=== PATIENT | male | born 1960 | race Caucasian/White ===

== ENCOUNTER 2024-10-02 12:19 | Inpatient (IN) ==
--- NOTE | 2024-10-02 13:18 | Emergency Department Note ---
History of Present Illness General Chief complaint: Foot Injury/Pain Stated complaint: INFECTION IN FOOT Time Seen by Provider: 10/02/24 12:54 History of Present Illness Maximum Pain Intensity: 8 Patient is a 64-year-old male with past medical history significant for dyslipidemia, and metastatic colon cancer receiving chemotherapy who presents to the emergency department for evaluation of right foot pain, redness and swelling x 1 week. Patient states that symptoms started last , with isolated right great toe pain, without inciting incident or trauma. He thought it may be triggered by an ingrown toenail. The right great toe subsequently became red and swollen. He was seen at a urgent care facility on Sunday 4 days ago, and started on cephalexin 500 mg 4 times daily. At that time, the redness was to the base of the great toe. When his symptoms did not improve on the cephalexin, he was seen at [facility] primary care on Sunday, 2 days ago. At that point, the redness and swelling were traveling into the dorsum of the foot, and he was having worsening pain. He is provider told him to stop the cephalexin, and put him on Levaquin 750 mg daily and doxycycline 100 mg twice daily. He has been taking these antibiotics for about 2 days, and symptoms are worsening. He is checking his temperatures and is not running fevers, denies nausea, vomiting or malaise. He denies a history of gout, but states they did check his uric acid level 2 days ago and it was only "0.1 above the normal range." When his symptoms are worsening today, he sent pictures securely to his primary care provider's office and they directed him to the emergency department. Patient is currently being treated FOLFOX and Avastin, under the care of Dr. Gates. His last chemotherapy was 09/23. Home Medications Medication Instructions Recorded Confirmed Type dicyclomine 10 mg capsule 10 mg PO TID PRN Pain 10/02/24 10/02/24 History doxycycline hyclate 100 mg capsule 100 mg PO BID 10/02/24 10/02/24 History levofloxacin 750 mg tablet 750 mg PO DAILY 10/02/24 10/02/24 History mupirocin 2 % topical ointment 1 applic topical DIRECTED 10/02/24 10/02/24 History simvastatin 20 mg tablet 20 mg PO DAILY 10/02/24 10/02/24 History Allergies Allergy/AdvReac Type Severity Reaction Status Date / Time Penicillins Allergy Intermediate Hives Verified 10/02/24 13:22 Past Med/Surg History Problem List (Updated 10/02/24 @ 15:40 by Devaughn Lei) Cellulitis of foot, right (Acute) Pancytopenia (Acute) Medical History (Updated 10/02/24 @ 15:40 by Devaughn Lei) Colon cancer metastasized to multiple sites Dyslipidemia Surgical History (Updated 10/02/24 @ 15:33 by Sarah Heller PA-C) S/P colonoscopy with polypectomy Hx of lymph node excision 2004 Port-A-Cath in place Family History (Updated 10/02/24 @ 15:34 by Sarah Heller PA-C) Sister Breast cancer Other Diabetes Heart disease Hypertension Social History Smoking Status: Never smoker Preferred Language: Faroese Feels Safe at Home: Yes Review of Systems A total of 10 systems reviewed and were otherwise negative Physical Exam Vital Signs Vital Signs - 24 hr 10/02/24 12:33 10/02/24 12:49 10/02/24 12:53 Temperature 37.1 C Temperature Source Temporal Artery Scan Pulse Rate 60 58 L Pulse Rate [Apical] 53 L Pulse Rate from SpO2 Sensor Respiratory Rate 18 20 Respiratory Effort / Characteristics Non-Labored Spontaneous Non-Labored Respiratory Depth Normal Normal Blood Pressure 128/79 Blood Pressure [Right Arm] 138/78 Blood Pressure Mean 95 Blood Pressure Mean [Right Arm] 98 Pulse Oximetry 98 100 Oxygen Delivery Method Room Air Room Air Sepsis Recent Fever Within 48 Hours No Sepsis New/Unexplained Change in Mental Status No Sepsis Action Taken by Nursing No Action Required 10/02/24 13:01 10/02/24 13:23 10/02/24 13:29 Temperature Temperature Source Pulse Rate 54 L 53 L Pulse Rate [Apical] Pulse Rate from SpO2 Sensor 54 L 54 L Respiratory Rate 14 17 Respiratory Effort / Characteristics Respiratory Depth Blood Pressure 143/84 H 111/94 Blood Pressure [Right Arm] Blood Pressure Mean 103 99 Blood Pressure Mean [Right Arm] Pulse Oximetry 100 100 Oxygen Delivery Method Room Air Room Air Sepsis Recent Fever Within 48 Hours Sepsis New/Unexplained Change in Mental Status Sepsis Action Taken by Nursing 10/02/24 14:30 10/02/24 15:18 Temperature 36.6 C Temperature Source Oral Pulse Rate 57 L Pulse Rate [Apical] Pulse Rate from SpO2 Sensor 56 L Respiratory Rate 13 Respiratory Effort / Characteristics Respiratory Depth Blood Pressure 137/77 Blood Pressure [Right Arm] Blood Pressure Mean 99 Blood Pressure Mean [Right Arm] Pulse Oximetry 100 Oxygen Delivery Method Room Air Sepsis Recent Fever Within 48 Hours Sepsis New/Unexplained Change in Mental Status Sepsis Action Taken by Nursing CONSTITUTIONAL: Nontoxic-appearing 64-year-old male who is awake and alert and in no acute distress. EYES: Pupils equal, round, reactive to light and accommodation. EOMs intact without nystagmus. Sclera are anicteric. CARDIOVASCULAR: Regular rate and rhythm. Peripheral pulses easy to palpable. RESPIRATORY: Breath sounds equal and clear to auscultation. GI: Bowel sounds are present. Abdomen is soft, nontender, nondistended. No organomegaly. No pulsatile masses. No guarding or rebound. MUSCULOSKELETAL: Full range of motion of extremities x 4 with good strength. Right great toe is circumferentially erythematous, swollen, and warm to the touch, with ascending erythema and swelling into the dorsum of the foot. Swelling extends to the ankle, 1+ pitting edema there. Faint erythema to the ankle and gimenez. Mild petechial rash noted. No palpable cords. No right knee joint effusion noted. No lymphangitic streaking. Muscle bellies of the calf and right thigh are soft. NEUROLOGICAL: Alert, oriented, and cooperative. Cranial nerves, sensation and strength grossly intact. LYMPH: No lymphadenopathy. Course Course The patient was seen and assessed as above. External medical records are reviewed. The family preservation caseworker were able to obtain [facility] records from his recent outpatient visits which were reviewed. He presents to the emergency department for evaluation of right great toe and foot pain, redness and swelling. He was treated with cephalexin x 2 days, then doxycycline and Levaquin times almost 2 days, with worsening symptoms. He was referred to the ED by his primary care provider. He is currently receiving chemotherapy for metastatic colon cancer. Saline lock was placed. Laboratory studies collected including CBC with differential, CMP, lactate and blood cultures x 2. Ultrasound of the right lower extremity and x-ray of the right foot were obtained. Discussed patient with the ED pharmacist Taniya Worrell, and patient was given cefepime and vancomycin IV. Patient reviewed with ED family preservation caseworker for anticipated inpatient care. Diagnostics, as interpreted by me: Laboratory studies: Laboratory studies no pancytopenia, white count 2900, H&H 12.8 and 36.4, platelet count 106,000. Fortunately normal differential and no neutropenia. No electrolyte imbalance or VERONICA, no transaminitis. Lactate is not elevated and not consistent with severe sepsis. Imaging studies: X-ray of the right foot without acute fracture or other osseous findings. Ultrasound of the right lower extremity All laboratory and diagnostic imaging studies reviewed with the patient at length. Exam appears consistent with cellulitis, although differential diagnoses considered included osteomyelitis, DVT, necrotizing fasciitis, abscess, gout versus pseudogout, among others. Given his compromised state, I did feel that further inpatient care was warranted and he was agreeable. Patient reviewed with the [facility] for further care and management. Chronic conditions affecting care: Metastatic colon cancer Administered Medications Discontinued Medications Cefepime HCl (Maxipime 2000mg) 2,000 mg in 20 mls @ 5 mls/min IV NOW STA; Protocol Stop: 10/02/24 13:32 Last Admin: 10/02/24 14:11 Dose: 5 mls/min Documented By: GENARO Vancomycin HCl 1,750 mg/ (Sodium Chloride) 535 mls @ 200 mls/hr IV NOW ONE Stop: 10/02/24 16:09 Last Admin: 10/02/24 14:12 Dose: 200 mls/hr Documented By: Medical Decision Making Differential Diagnosis See ED course. Medical Records Attestation: I reviewed the patient's medical records. Home Medications Current Medication List: was personally reviewed by me Laboratory Data Attestation: I reviewed the patient's lab results. 10/02/24 12:51 10/02/24 12:51 Lab Results 10/02/24 10/02/24 Range/Units 12:51 14:15 WBC 2.96 L (4.8-10.8) K/ul RBC 3.69 L (4.70-6.10) M/uL Hgb 12.8 L (14.0-18.0) g/dl Hct 36.4 L (42.0-52.0) % MCV 98.6 (80.0-100.0) fL MCH 34.7 H (25.0-34.0) pg MCHC 35.2 (32.0-36.0) g/dL RDW Std Deviation 47.2 H (36.4-46.3) fL RDW Coeff of Miryam 13.3 (11.5-14.5) % Plt Count 106 L (130-400) K/uL MPV 10.2 (9.4-12.4) fL Immature Gran % (Auto) 1.4 % Neut % (Auto) 48.8 % Lymph % (Auto) 27.4 % [place] % (Auto) 17.6 % Eos % (Auto) 4.1 % Baso % (Auto) 0.7 % Neut # (Auto) 1.45 (1.40-6.50) K/uL Lymph # (Auto) 0.81 L (1.20-3.40) K/uL [place] # (Auto) 0.52 (0.11-0.59) K/uL Eos # (Auto) 0.12 (0.00-0.50) K/uL Baso # (Auto) 0.02 (0.00-0.20) K/uL Immature Gran # (Auto) 0.04 (0.01-0.20) K/uL Sodium 139 (136-145) mmol/L Potassium 4.1 (3.5-5.1) mmol/L Chloride 106 (98-107) mmol/L Carbon Dioxide 26 (21-32) mmol/L Anion Gap 7 (3-11) BUN 20 (6-23) mg/dl Creatinine 0.85 (0.6-1.4) mg/dl Est Cr Clr Drug Dosing 106.3 ml/min eGFR 97.64 BUN/Creatinine Ratio 23.5 H (10-20) Glucose 84 (70-99(Fasting)) mg/dl Lactate 1.0 (0.4-2.0) mmol/L Calcium 9.4 (8.6-10.3) mg/dl Total Bilirubin 1.0 (0.2-1.0) mg/dl AST 26 (13-39) U/L ALT 14 (7-52) U/L Alkaline Phosphatase 53 (34-104) U/L Total Protein 7.7 (6.0-8.3) gm/dl Albumin 4.6 (3.4-5.0) gm/dl Globulin 3.1 (2.5-4.0) gm/dl Albumin/Globulin Ratio 1.5 (0.9-2) Imaging Data Attestation: I personally reviewed and interpreted this imaging study as follows: Radiologist's Impression: Foot X-Ray 10/02/24 13:10 XR foot RT min 3V routine CLINICAL HISTORY: RIGHT GREAT TOE PAIN AND SWELLING X 1 WEEK COMPARISON: None FINDINGS: No fracture or dislocation. No erosion or significant degenerative change. No evidence of osteomyelitis. No radiopaque foreign body. There are small chronic calcifications adjacent to the cuboid and the dorsal midfoot on the lateral view consistent with sequela of old injury. There are is a chronic calcification at the Achilles insertion on the calcaneus consistent with calcific tendinitis or sequela of old Achilles injury. IMPRESSION: No acute osseous finding seen. ACT 112: Negative or not required by law. Electronically signed by: José Fisher M.D. 10/02/2024 1:44 PM Venous Doppler Study 10/02/24 13:10 US venous doppler LE RT HISTORY: right foot pain/redness/swelling COMPARISON: None TECHNIQUE: Multiple real-time sonographic images of the right lower extremity deep venous structures were obtained assessing grayscale appearance, color and spectral flow. FINDINGS: No evidence of DVT seen at the right lower extremity. IMPRESSION: No DVT seen. ACT 112: Negative or not required by law. The above report was generated using voice recognition software. It may contain grammatical, syntax or spelling errors. Electronically signed by: José Fisher M.D. 10/02/2024 2:35 PM MDM Narrative See ED course. Impression & Plan Cellulitis of foot, right, Pancytopenia Discharge Plan Visit Data Chief Complaint: Foot Injury/Pain Stated Complaint: INFECTION IN FOOT ED Provider: Deric Aguirre ED Midlevel Provider: Devaughn Lei Discharge Problem: Cellulitis of foot, right, Pancytopenia Patient Disposition: Being Evaluated by Hospitalist Condition: Fair Forms Stand Alone Forms: My Daz 3d Prescriptions Prescriptions: No Action doxycycline hyclate 100 mg capsule 100 mg PO BID Patient Comments: filled 09/30 7 day supply #14 simvastatin 20 mg tablet 20 mg PO DAILY mupirocin 2 % ointment 1 applic TOPICAL DIRECTED levofloxacin 750 mg tablet 750 mg PO DAILY Patient Comments: filled 09/30 7 day supply #7 dicyclomine 10 mg capsule 10 mg PO TID PRN (Reason: Pain) Referrals Referrals: Edwar Little MD [Outside Practitioners] -
[2024-10-02] MEDS ORDERED: VANCOMYCIN CONSULT ACTIVE PRN (13:29)
[2024-10-02 13:42] LABS: Hematocrit (blood only) 36.4 % (42.0-52.0); Hemoglobin 12.8 g/dl (14.0-18.0); Immature Granulocytes # (auto) 0.04 K/uL (0.01-0.20); Immature Granulocytes % (auto) 1.4 %; Mean Corpuscular Hemoglobin 34.7 pg (25.0-34.0); Mean Corpuscular Volume 98.6 fL (80.0-100.0); Platelet Count 106 K/uL (130-400); RDW Standard Deviation 47.2 fL (36.4-46.3); Red Blood Count 3.69 M/uL (4.70-6.10); White Blood Count 2.96 K/ul (4.8-10.8)
--- NOTE | 2024-10-02 13:46 | XRay Report ---
XR foot RT min 3V routine CLINICAL HISTORY: RIGHT GREAT TOE PAIN AND SWELLING X 1 WEEK COMPARISON: None FINDINGS: No fracture or dislocation. No erosion or significant degenerative change. No evidence of osteomyelitis. No radiopaque foreign body. There are small chronic calcifications adjacent to the cub oid and the dorsal midfoot on the lateral view consistent with sequela of old injury. There are is a chronic calcification at the Achilles insertion on the calcaneus consistent with calcific tendinitis or sequela of old Achilles injury. IMPRESSION: No acute osseous finding seen. ACT 112: Negative or not required by law. Electronically signed by: José Fisher M.D. 10/02/2024 1:44 PM
[2024-10-02 13:57] LABS: Alanine Aminotransferase 14.0 U/L (7-52); Albumin Globulin Ratio 1.5 (0.9-2); Alkaline Phosphatase 53.0 U/L (34-104); Anion Gap 7.0 (3-11); Bilirubin,Total 1.0 mg/dl (0.2-1.0); Blood Urea Nitrogen 20.0 mg/dl (6-23); Calcium 9.4 mg/dl (8.6-10.3); Carbon Dioxide 26.0 mmol/L (21-32); Chloride 106.0 mmol/L (98-107); Creatinine Clr Calc Pharmacy 106.3 ml/min; Globulin 3.1 gm/dl (2.5-4.0); Glucose 84.0 mg/dl (70-99(Fasting)); Potassium 4.1 mmol/L (3.5-5.1); Sodium 139.0 mmol/L (136-145); Total Protein 7.7 gm/dl (6.0-8.3)
[2024-10-02] MEDS: CEFEPIME 2000MG 2,000 MG/20 ML SYR IV STA (14:11)
[2024-10-02] MEDS: VANCOMYCIN HCL 1,750 MG in SODIUM CHLORIDE 0.9% 500 ML IV ONE (14:12)
--- NOTE | 2024-10-02 14:36 | Ultrasound Report ---
US venous doppler LE RT HISTORY: right foot pain/redness/swelling COMPARISON: None TECHNIQUE: Multiple real-time sonographic images of the right lower extremity deep venous structures were obtained assessing grayscale appearance, color and spectral flow. FINDINGS: No evidence of DVT seen at the right lower extremity. IMPRESSION: No DVT seen. ACT 112: Negative or not required by law. The above report was generated using voice recognition software. It may contain grammatical, syntax o r spelling errors. Electronically signed by: José Fisher M.D. 10/02/2024 2:35 PM
--- NOTE | 2024-10-02 15:26 | History & Physical Report ---
Date of Service October 02, 2024 Assessment & Plan (1) Cellulitis of foot, right: (2) Pancytopenia: (3) Colon cancer metastasized to multiple sites: (4) Dyslipidemia: Plan This is a 64 y/o male with metastatic colon cancer, currently receiving chemo with mFOLFOX6, dyslipidemia, and Raynaud phenomenon presents to the ED today with infection of right great toe having failed outpatient oral antibiotics. Pt is currently on chemotherapy with last cycle on 09/23/24 with resultant pa ncytopenia. In the ED, WBCs low at 2.96 but neutrophils low normal at 1.45. Pt referred for admission for IV antibiotics in view of failure of outpatient treatment in a patient currently immunocompromised due to chemotherapy. Does not currently meet criteria for sepsis as pt is afebrile, no tachycardia/hypotension/tachypnea. His outpatient oncology notes and labs were personally reviewed. #Right toe cellulitis #Immunocompromised due to chemotherapy #Pancytopenia - Admit to med surg - Continue broad-spectrum antibiotics with IV cefepime and vancomycin for now - Blood cultures, MRSA swab pending - Daily CBC - ANC trending up since last week - Chemo canceled for next week - timing of next cycle to be determined pending hospital course #Dyslipidemia Chronic, stable - continue statin Pt seen and reviewed with collaborating physician, Dr. Salcedo. Plan of care discussed and as outlined above. Code status: full code I spent a total of 72 minutes coordinating, documenting, and providing care for this patient excluding time spent in the performance of separately billed services or time spent by another provider/QHP. Morris Heller PA-C History of Present Illness Chief Complaint: toe infection Primary Care Provider: Rodney Nunes This is a 64 y/o male with metastatic colon cancer, currently receiving chemo with mFOLFOX6, dyslipidemia, and Raynaud phenomenon presents to the ED today with infection of right great toe having failed outpatient oral antibiotics. Started with mild pain and swelling in his right great toe about a week ago. No known injury or inciting event. He was seen at urgent care 09/28/24 with three days of swelling and redness of right great toe - diagnosed with cellulitis and placed on cephalexin. He didn't notice any significant improvement on two days of cephalexin so he was seen at PCP office on 09/30/24 for re-evaluation. The cephalexin was stopped and he was started on levofloxacin and doxycycline. Since changing antibiotics, the toe has continued to worsen, especially over the last 24 hours. The swelling has spread from the toe to the foot and now to his ankle. The pain has worsened, especially with any pressure to the area or weightbear ing. Pain is described as throbbing, may keep him up at night. No open wounds on or drainage from the toe. He denies having anything similar in the past. He denies fevers or sweats, but chronically has chills from the chemo. Last dose of chemo was on 09/23/24, due for next dose next week but already spoke with oncology to cancel this. He denies chest pain, palpitations, nausea, vomiting, diarrhea, cold symptoms. Appetite is fair at baseline. Allergies Allergy/AdvReac Type Severity Reaction Status Date / Time Penicillins Allergy Intermediate Hives Verified 10/02/24 13:22 Home Medications Medication Instructions Recorded Confirmed Type dicyclomine 10 mg capsule 10 mg PO TID PRN Pain 10/02/24 10/02/24 History doxycycline hyclate 100 mg capsule 100 mg PO BID 10/02/24 10/02/24 History levofloxacin 750 mg tablet 750 mg PO DAILY 10/02/24 10/02/24 History mupirocin 2 % topical ointment 1 applic topical DIRECTED 10/02/24 10/02/24 History simvastatin 20 mg tablet 20 mg PO DAILY 10/02/24 10/02/24 History Past Med/Surg History Problem List (Updated 10/02/24 @ 15:40 by Devaughn Lei) Cellulitis of foot, right (Acute) Pancytopenia (Acute) Medical History (Updated 10/02/24 @ 15:40 by Devaughn Lei) Colon cancer metastasized to multiple sites Dyslipidemia Surgical History (Updated 10/02/24 @ 15:33 by Sarah Heller PA-C) S/P colonoscopy with polypectomy Hx of lymph node excision 2004 Port-A-Cath in place Family History (Updated 10/02/24 @ 15:34 by Sarah Heller PA-C) Sister Breast cancer Other Diabetes Heart disease Hypertension Social History Smoking Status: Never smoker Hx Alcohol Use: No Hx Substance Use: No Preferred Language: Korean [employer] Required: Yes Beliefs That Will Affect Care: None Current Living Situation: Alone and Family Feels Safe at Home: Yes Review of Systems Review of Systems: All systems reviewed & are unremarkable except as noted in Subjective Physical Exam Physical Exam: General: awake, alert, NAD HEENT: no scleral icterus, moist oral mucosa Neck: supple, trachea midline Heart: RRR, no M/G/R Lungs: CTA bilaterally, no W/R/R Abdomen: soft, NT, +BS Extremities: right great toe with erythema and warmth, swelling extending to right ankle, exquisitely tender to touch from toe to midfoot, distal pulses intact and equal UE and LE bilaterally Results & Data Results & Data Vital Signs (Past 12 Hours) Vital Signs Temp Pulse Pulse Resp BP BP Pulse Ox 10/02/24 15:18 36.6 C 10/02/24 14:30 57 L 13 137/77 100 10/02/24 13:29 53 L 17 111/94 100 10/02/24 13:23 54 L 14 100 10/02/24 13:01 143/84 H 10/02/24 12:53 58 L 10/02/24 12:49 53 L 20 138/78 100 10/02/24 12:33 37.1 C 60 18 128/79 98 O2 Del Method 10/02/24 15:18 10/02/24 14:30 Room Air 10/02/24 13:29 Room Air 10/02/24 13:23 Room Air 10/02/24 13:01 10/02/24 12:53 10/02/24 12:49 Room Air 10/02/24 12:33 Room Air Laboratory Results Lab Results 10/02/24 10/02/24 Range/Units 12:51 14:15 WBC 2.96 L (4.8-10.8) K/ul RBC 3.69 L (4.70-6.10) M/uL Hgb 12.8 L (14.0-18.0) g/dl Hct 36.4 L (42.0-52.0) % MCV 98.6 (80.0-100.0) fL MCH 34.7 H (25.0-34.0) pg MCHC 35.2 (32.0-36.0) g/dL RDW Std Deviation 47.2 H (36.4-46.3) fL RDW Coeff of Miryam 13.3 (11.5-14.5) % Plt Count 106 L (130-400) K/uL MPV 10.2 (9.4-12.4) fL Immature Gran % (Auto) 1.4 % Neut % (Auto) 48.8 % Lymph % (Auto) 27.4 % [place] % (Auto) 17.6 % Eos % (Auto) 4.1 % Baso % (Auto) 0.7 % Neut # (Auto) 1.45 (1.40-6.50) K/uL Lymph # (Auto) 0.81 L (1.20-3.40) K/uL [place] # (Auto) 0.52 (0.11-0.59) K/uL Eos # (Auto) 0.12 (0.00-0.50) K/uL Baso # (Auto) 0.02 (0.00-0.20) K/uL Immature Gran # (Auto) 0.04 (0.01-0.20) K/uL Sodium 139 (136-145) mmol/L Potassium 4.1 (3.5-5.1) mmol/L Chloride 106 (98-107) mmol/L Carbon Dioxide 26 (21-32) mmol/L Anion Gap 7 (3-11) BUN 20 (6-23) mg/dl Creatinine 0.85 (0.6-1.4) mg/dl Est Cr Clr Drug Dosing 106.3 ml/min eGFR 97.64 BUN/Creatinine Ratio 23.5 H (10-20) Glucose 84 (70-99(Fasting)) mg/dl Lactate 1.0 (0.4-2.0) mmol/L Calcium 9.4 (8.6-10.3) mg/dl Total Bilirubin 1.0 (0.2-1.0) mg/dl AST 26 (13-39) U/L ALT 14 (7-52) U/L Alkaline Phosphatase 53 (34-104) U/L Total Protein 7.7 (6.0-8.3) gm/dl Albumin 4.6 (3.4-5.0) gm/dl Globulin 3.1 (2.5-4.0) gm/dl Albumin/Globulin Ratio 1.5 (0.9-2) Diagnostic Findings Foot X-Ray 10/02/24 13:10 XR foot RT min 3V routine CLINICAL HISTORY: RIGHT GREAT TOE PAIN AND SWELLING X 1 WEEK COMPARISON: None FINDINGS: No fracture or dislocation. No erosion or significant degenerative change. No evidence of osteomyelitis. No radiopaque foreign body. There are small chronic calcifications adjacent to the cuboid and the dorsal midfoot on the lateral view consistent with sequela of old injury. There are is a chronic calcification at the Achilles insertion on the calcaneus consistent with calcific tendinitis or sequela of old Achilles injury. IMPRESSION: No acute osseous finding seen. ACT 112: Negative or not required by law. Electronically signed by: José Fisher M.D. 10/02/2024 1:44 PM Venous Doppler Study 10/02/24 13:10 US venous doppler LE RT HISTORY: right foot pain/redness/swelling COMPARISON: None TECHNIQUE: Multiple real-time sonographic images of the right lower extremity deep venous structures were obtained assessing grayscale appearance, color and spectral flow. FINDINGS: No evidence of DVT seen at the right lower extremity. IMPRESSION: No DVT seen. ACT 112: Negative or not required by law. The above report was generated using voice recognition software. It may contain grammatical, syntax or spelling errors. Electronically signed by: José Fisher M.D. 10/02/2024 2:35 PM Medications Administered Vancomycin HCl 1,750 mg/ (Sodium Chloride) 535 mls @ 200 mls/hr IV NOW ONE Stop: 10/02/24 16:09 Last Admin: 10/02/24 14:12 Dose: 200 mls/hr Documented By: GENARO Discontinued Medications Cefepime HCl (Maxipime 2000mg) 2,000 mg in 20 mls @ 5 mls/min IV NOW STA; Protocol Stop: 10/02/24 13:32 Last Admin: 10/02/24 14:11 Dose: 5 mls/min Documented By: GENARO Supervising Physician Co-Signing Physician Notes Attending addendum: He has been complaining of worsening redness and swelling involving the right great toe and associated area of right foot Has significant pain in the right foot and right great toe but denies any other significant symptoms He received his chemotherapy for colon cancer on 09/28/2024 On examination Lying in bed with some distress due to right foot pain Hemodynamically stable and is afebrile Chestclear to auscultate bilaterally HeartS1-S2, regular Abdomenbenign Extremitiesright foot is swollen with redness involving the right big toe and adjoining area of the foot, tenderness and no evidence of regional lymphadenopathy No breach of the skin noted and no ingrowing toenail His labs and imaging studies reviewed Assessment and plan Spreading cellulitis involving the right great toe and adjoining area of right foot with failed outpatient antibiotics Received Keflex initially followed by [facility] for the last 1 or 2 days Blood cultures have been sent and he will be starting with IV cefepime and vancomycin He is immunosuppressed secondary to ongoing chemo with history of colon cancer Agree with assessment plan as outlined above by Zo Heller PA-C and take the full responsibility of care in the hospital Dr Zakia Salcedo
--- NOTE | 2024-10-02 19:57 | Pharmacy Report ---
Pharmacy PK ABX Note - Date of Service October 02, 2024 - Assessment and Plan Assessment 64 year old M admitted for R toe cellulitis and pancytopenia due to recent chemotherapy for colon cancer. Patient is immunocompromised. Vancomycin and Cefepime started for treatment of cellulitis after failed outpatient oral antibiotics- first Keflex after 2 days therapy then almost 2 days of Doxycycline and Levaquin. Pertinent microbiologic data includes: Blood cultures pending. Day #1 of antimicrobial therapy. Plan Vancomycin * Loading dose: 1750 mg IV x 1 * Maintenance dose: 1500 mg IV every 12 hours * Regimen is predicted to achieve target AUC/AD of 400-600 mg/L.hr * Random level ordered for: 7/5 with AM labs. Pharmacy will continue to follow and will adjust dose/frequency as necessary. Thank you. Pharmacy has transitioned to AUC monitoring for vancomycin. AUC/AD is the preferred PK/PD target and is associated with decreased risk of nephrotoxicity compared to traditional trough targets.
[2024-10-02] MEDS: CEFEPIME 2000MG 2,000 MG/20 ML SYR IV SCH (20:50)
[2024-10-02] MEDS: VANCOMYCIN HCL 1,500 MG in SODIUM CHLORIDE 0.9% 500 ML IV SCH (20:55)
[2024-10-03 07:14] LABS: Hematocrit (blood only) 31.0 % (42.0-52.0); Hemoglobin 10.9 g/dl (14.0-18.0); Mean Corpuscular Hemoglobin 34.6 pg (25.0-34.0); Mean Corpuscular Volume 98.4 fL (80.0-100.0); Platelet Count 99 K/uL (130-400); RDW Standard Deviation 46.4 fL (36.4-46.3); Red Blood Count 3.15 M/uL (4.70-6.10); White Blood Count 2.79 K/ul (4.8-10.8)
[2024-10-03 07:24] LABS: Anion Gap 5.0 (3-11); Blood Urea Nitrogen 15.0 mg/dl (6-23); Calcium 8.7 mg/dl (8.6-10.3); Carbon Dioxide 25.0 mmol/L (21-32); Chloride 111.0 mmol/L (98-107); Creatinine Clr Calc Pharmacy 110.2 ml/min; Glucose 90.0 mg/dl (70-99(Fasting)); Potassium 3.8 mmol/L (3.5-5.1); Sodium 141.0 mmol/L (136-145)
[2024-10-03 07:33] LABS: Immature Granulocytes # (auto) 0.01 K/uL (0.01-0.20); Immature Granulocytes % (auto) 0.4 %; Polychromasia 1+
[2024-10-03] MEDS: SIMVASTATIN 20 MG TAB PO SCH ×2 (08:16→23:08)
[2024-10-03] MEDS: ENOXAPARIN INJ 40 MG/0.4 ML SYR SQ SCH (08:16)
--- NOTE | 2024-10-03 10:35 | Hospitalist Progress Note ---
Date of Service October 03, 2024 Assessment & Plan (1) Cellulitis of foot, right: (2) Pancytopenia: (3) Colon cancer metastasized to multiple sites: (4) Dyslipidemia: Plan 64 year old man with metastatic colon cancer, currently receiving chemo with mFOLFOX6, dyslipidemia, and Raynaud phenomenon presents to the ED with infection of right great toe having failed outpatient oral antibiotics. Pt is currently on chemotherapy with last cycle on 09/23/24 with resultant pancytopenia. #Right toe and foot cellulitis #Immunocompromised due to chemotherapy #Pancytopenia LE XR and Doppler did not show any acute findings Blood cultures pending Continue IV cefepime and vancomycin for now RN to anil cellulitis area to monitor progress Pancytopenia likely related to chemo Pain control #Dyslipidemia Chronic, stable Continue statin I spent a total of 50 minutes coordinating, documenting and providing care for this patient excluding time spent in performance of separately billed services Admission and Anticipated Discharge Date Admission Date: October 02, 2024 Subjective Patient seen and examined Still reports significant pain in right foot Reports redness is improving No other complaints on ROS Physical Exam Constitutional: + well hydrated; no acute distress Eyes: PERRL, conjunctivae normal, anicteric sclerae ENMT: external ear and nose normal, oropharynx normal Respiratory: normal respiratory effort, lungs clear to auscultation Cardiovascular: Rate/Rhythm: regular rate and regular rhythm Gastrointestinal (Abdomen): normal bowel sounds, soft, nontender, no hepatosplenomegaly Musculoskeletal: Right foot - Erythema and tenderness on anterior dorsum of foot and great toe. Associated with swelling. No open wounds Neurologic: PERRL, EOMI, accommodation nl, no face palsy, no dysarthria Psychiatric: A+Ox3, euthymic affect Results & Data Results & Data Vital Signs (Past 12 Hours) Vital Signs Temp Pulse Resp BP Pulse Ox O2 Del Method 10/03/24 07:26 36.3 C L 59 L 18 134/70 97 Room Air Laboratory Results Abnormal lab results 10/02/24 10/03/24 Range/Units 12:51 06:33 WBC 2.96 L 2.79 L (4.8-10.8) K/ul RBC 3.69 L 3.15 L (4.70-6.10) M/uL Hgb 12.8 L 10.9 L (14.0-18.0) g/dl Hct 36.4 L 31.0 L (42.0-52.0) % MCH 34.7 H 34.6 H (25.0-34.0) pg RDW Std Deviation 47.2 H 46.4 H (36.4-46.3) fL Plt Count 106 L 99 L (130-400) K/uL Neut # (Auto) 1.27 L (1.40-6.50) K/uL Lymph # (Auto) 0.81 L 0.82 L (1.20-3.40) K/uL Chloride 111 H (98-107) mmol/L BUN/Creatinine Ratio 23.5 H (10-20)
[2024-10-03] MEDS: ACETAMINOPHEN 325 MG TAB PO PRN (10:36)
[2024-10-03 21:15] LABS: A calco-baum cmplx NotReported Not Detected (NotDetected); Bact fragilis Not Reported Not Detected (NotDetected); Blood Culture Id Panel PCR Panel Negative (NotDetected); C auris Not Reported Not Detected (NotDetected); Calbicans Not Reported Not Detected (NotDetected); Candida glabrata Not Reported Not Detected (NotDetected); Candida krusei Not Reported Not Detected (NotDetected); Cneoformans/gatti Not Reported Not Detected (NotDetected); Cparapsilosis Not Reported Not Detected (NotDetected); Ctropicalis Not Reported Not Detected (NotDetected); E cloacae compx Not Reported Not Detected (NotDetected); Efaecalis Not Reported Not Detected (NotDetected); Efaecium Not Reported Not Detected (NotDetected); Enterobacterales Not Reported Not Detected (NotDetected); Escherichia coli Not Reported Not Detected (NotDetected); H influenzae Not Reported Not Detected (NotDetected); K aerogenes Not Reported Not Detected (NotDetected); Koxytoca Not Reported Not Detected (NotDetected); Kpneumoniae grp Not Reported Not Detected (NotDetected); Lmonocyt Not Reported Not Detected (NotDetected); N meningitidis Not Reported Not Detected (NotDetected); P aeruginosa Not Reported Not Detected (NotDetected); Proteus spp Not Reported Not Detected (NotDetected); Salmonella spp Not Reported Not Detected (NotDetected); Staph lugdunensis Not Reported Not Detected (NotDetected); Staph spp. Not Reported Not Detected (NotDetected); Staphaureus Not Reported Not Detected (NotDetected); Staphepi Not Reported Not Detected (NotDetected); Stenmaltophilia Not Reported Not Detected (NotDetected); Strep agal(GrpB) Not Reported Not Detected (NotDetected); Strep pneum Not Reported Not Detected (NotDetected); Strep pyog (GrpA) Not Reported Not Detected (NotDetected); Strep spp Not Reported Not Detected (NotDetected)
[2024-10-04 06:11] LABS: Hematocrit (blood only) 30.3 % (42.0-52.0); Hemoglobin 11.0 g/dl (14.0-18.0); Mean Corpuscular Hemoglobin 35.4 pg (25.0-34.0); Mean Corpuscular Volume 97.4 fL (80.0-100.0); Platelet Count 86 K/uL (130-400); RDW Standard Deviation 45.7 fL (36.4-46.3); Red Blood Count 3.11 M/uL (4.70-6.10); White Blood Count 2.80 K/ul (4.8-10.8)
[2024-10-04 06:26] LABS: Anion Gap 6.0 (3-11); Blood Urea Nitrogen 11.0 mg/dl (6-23); Calcium 8.6 mg/dl (8.6-10.3); Carbon Dioxide 25.0 mmol/L (21-32); Chloride 111.0 mmol/L (98-107); Creatinine Clr Calc Pharmacy 113.0 ml/min; Glucose 92.0 mg/dl (70-99(Fasting)); Potassium 3.7 mmol/L (3.5-5.1); Sodium 142.0 mmol/L (136-145)
--- NOTE | 2024-10-04 10:01 | Pharmacy Report ---
Pharmacy PK ABX Note - Date of Service October 04, 2024 - Assessment and Plan Assessment * 64 year old M admitted for R toe cellulitis and pancytopenia due to recent chemotherapy for colon cancer. Patient is immunocompromised. * Vancomycin and Cefepime started for treatment of cellulitis after failed outpatient oral antibiotics- first Keflex after 2 days therapy then almost 2 days of Doxycycline and Levaquin. 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 Bacillus species (other than anthracis) are often contaminants. * SCr stable Plan Vancomycin * Target AUC/AD of 400-600 mg/L.hr * Level of 18.2 mcg/mL today associated with a therapeutic AUC of 555 mg/L.hr * Continue 1500 mg IV every 12 hours * Repeat random level in ~48-72 hours, or sooner if clinical status changes Pharmacy will continue to follow and will adjust dose/frequency as necessary. Thank you. Pharmacy has transitioned to AUC monitoring for vancomycin. AUC/AD is the preferred PK/PD target and is associated with decreased risk of nephrotoxicity compared to traditional trough targets.
--- NOTE | 2024-10-04 10:31 | Hospitalist Progress Note ---
Date of Service October 04, 2024 Assessment & Plan (1) Cellulitis of foot, right: (2) Pancytopenia: (3) Colon cancer metastasized to multiple sites: (4) Dyslipidemia: Plan 64 year old man with metastatic colon cancer, currently receiving chemo with mFOLFOX6, dyslipidemia, and Raynaud phenomenon presents to the ED with infection of right great toe having failed outpatient oral antibiotics. Pt is currently on chemotherapy with last cycle on 09/23/24 with resultant pancytopenia. #Right toe and foot cellulitis #Immunocompromised due to chemotherapy #Pancytopenia LE XR and Doppler did not show any acute findings Blood cultures pending Continue IV cefepime and vancomycin for now Pancytopenia likely related to chemo Pain control #Dyslipidemia Chronic, stable Continue statin I spent a total of 40 minutes coordinating, documenting and providing care for this patient excluding time spent in performance of separately billed services Admission and Anticipated Discharge Date Admission Date: October 02, 2024 Subjective Patient seen and examined Reports pain is improving No other complaints Physical Exam Constitutional: + well hydrated; no acute distress Eyes: PERRL, conjunctivae normal, anicteric sclerae ENMT: external ear and nose normal, oropharynx normal Respiratory: normal respiratory effort, lungs clear to auscultation Cardiovascular: Rate/Rhythm: regular rate and regular rhythm Gastrointestinal (Abdomen): normal bowel sounds, soft, nontender, no hepatosplenomegaly Musculoskeletal: Right foot - Erythema, swelling and tenderness on anterior dorsum of foot and great toe are improving. Neurologic: PERRL, EOMI, accommodation nl, no face palsy, no dysarthria Psychiatric: A+Ox3, euthymic affect Results & Data Results & Data Vital Signs (Past 12 Hours) Vital Signs Temp Pulse Resp BP Pulse Ox O2 Del Method 10/04/24 08:33 36.3 C L 58 L 16 134/78 98 Room Air Laboratory Results Abnormal lab results 10/04/24 Range/Units 05:49 WBC 2.80 L (4.8-10.8) K/ul RBC 3.11 L (4.70-6.10) M/uL Hgb 11.0 L (14.0-18.0) g/dl Hct 30.3 L (42.0-52.0) % MCH 35.4 H (25.0-34.0) pg MCHC 36.3 H (32.0-36.0) g/dL Plt Count 86 L (130-400) K/uL MPV 8.9 L (9.4-12.4) fL Chloride 111 H (98-107) mmol/L
[2024-10-05 07:40] LABS: Hematocrit (blood only) 32.3 % (42.0-52.0); Hemoglobin 11.4 g/dl (14.0-18.0); Mean Corpuscular Hemoglobin 34.9 pg (25.0-34.0); Mean Corpuscular Volume 98.8 fL (80.0-100.0); Platelet Count 97 K/uL (130-400); RDW Standard Deviation 46.5 fL (36.4-46.3); Red Blood Count 3.27 M/uL (4.70-6.10); White Blood Count 3.02 K/ul (4.8-10.8)
[2024-10-05 07:57] LABS: Anion Gap 5.0 (3-11); Blood Urea Nitrogen 9.0 mg/dl (6-23); Calcium 8.6 mg/dl (8.6-10.3); Carbon Dioxide 27.0 mmol/L (21-32); Chloride 110.0 mmol/L (98-107); Creatinine Clr Calc Pharmacy 108.9 ml/min; Glucose 89.0 mg/dl (70-99(Fasting)); Potassium 3.7 mmol/L (3.5-5.1); Sodium 142.0 mmol/L (136-145)
--- NOTE | 2024-10-05 09:43 | Hospitalist Progress Note ---
Date of Service October 05, 2024 Assessment & Plan (1) Cellulitis of foot, right: (2) Pancytopenia: (3) Colon cancer metastasized to multiple sites: (4) Dyslipidemia: Plan 64 year old man with metastatic colon cancer, currently receiving chemo with mFOLFOX6, dyslipidemia, and Raynaud phenomenon presents to the ED with infection of right great toe having failed outpatient oral antibiotics. Pt is currently on chemotherapy with last cycle on 09/23/24 with resultant pancytopenia. #Right toe and foot cellulitis #Immunocompromised due to chemotherapy #Pancytopenia LE XR and Doppler did not show any acute findings Blood cultures - 04/05 bottle growing Bacillus simplex. Likely contaminant and patient had no systemic symptoms Continue IV cefepime and vancomycin for now Pancytopenia likely related to chemo Pain control #Dyslipidemia Chronic, stable Continue statin I spent a total of 40 minutes coordinating, documenting and providing care for this patient excluding time spent in performance of separately billed services Admission and Anticipated Discharge Date Admission Date: October 02, 2024 Subjective Patient seen and examined Continues to report improving pain and swelling No other complaints Physical Exam Constitutional: + well hydrated; no acute distress Eyes: PERRL, conjunctivae normal, anicteric sclerae ENMT: external ear and nose normal, oropharynx normal Respiratory: normal respiratory effort, lungs clear to auscultation Cardiovascular: Rate/Rhythm: regular rate and regular rhythm Gastrointestinal (Abdomen): normal bowel sounds, soft, nontender, no hepatosplenomegaly Musculoskeletal: Right foot - Erythema, swelling and tenderness on anterior dorsum of foot and great toe are improving Neurologic: PERRL, EOMI, accommodation nl, no face palsy, no dysarthria Psychiatric: A+Ox3, euthymic affect Results & Data Results & Data Vital Signs (Past 12 Hours) Vital Signs Temp Pulse Resp BP Pulse Ox O2 Del Method 10/05/24 06:57 36.4 C L 51 L 16 133/73 98 Room Air Laboratory Results Abnormal lab results 10/05/24 Range/Units 07:20 WBC 3.02 L (4.8-10.8) K/ul RBC 3.27 L (4.70-6.10) M/uL Hgb 11.4 L (14.0-18.0) g/dl Hct 32.3 L (42.0-52.0) % MCH 34.9 H (25.0-34.0) pg RDW Std Deviation 46.5 H (36.4-46.3) fL Plt Count 97 L (130-400) K/uL Chloride 110 H (98-107) mmol/L
[2024-10-05 15:44] VITALS: TEMP 97.7
[2024-10-05 20:19] VITALS: RESP 18
[2024-10-05] MEDS: diphenhydrAMINE 2%/ZINC 0.1% CREAM 28.4GM TUBE EXT PRN (22:23)
[2024-10-06 08:44] VITALS: BP 134/81; PULSE 57; O2SAT 97
--- NOTE | 2024-10-06 11:41 | Discharge Summary ---
Date of Service October 06, 2024 Admission HPI Per Admitting Provider This is a 64 y/o male with metastatic colon cancer, currently receiving chemo with mFOLFOX6, dyslipidemia, and Raynaud phenomenon presents to the ED today with infection of right great toe having failed outpatient oral antibiotics. Started with mild pain and swelling in his right great toe about a week ago. No known injury or inciting event. He was seen at urgent care 09/28/24 with three days of swelling and redness of right great toe - diagnosed with cellulitis and placed on cephalexin. He didn't notice any significant improvement on two days of cephalexin so he was seen at PCP office on 09/30/24 for re-evaluation. The cephalexin was stopped and he was started on levofloxacin and doxycycline. Since changing antibiotics, the toe has continued to worsen, especially over the last 24 hours. The swelling has spread from the toe to the foot and now to his ankle. The pain has worsened, especially with any pressure to the area or weightbearing. Pain is described as throbbing, may keep him up at night. No open wounds on or drainage from the toe. He denies having anything similar in the past. He denies fevers or sweats, but chronically has chills from the chemo. Last dose of chemo was on 09/23/24, due for next dose next week but already spoke with oncology to cancel this. He denies chest pain, palpitations, nausea, vomiting, diarrhea, cold symptoms. Appetite is fair at baseline. Admission Exam Per Admitting Provider General: awake, alert, NAD HEENT: no scleral icterus, moist oral mucosa Neck: supple, trachea midline Heart: RRR, no M/G/R Lungs: CTA bilaterally, no W/R/R Abdomen: soft, NT, +BS Extremities: right great toe with erythema and warmth, swelling extending to right ankle, exquisitely tender to touch from toe to midfoot, distal pulses intact and equal UE and LE bilaterally Principal Diagnosis Right toe and foot cellulitis; failed outpatient treatment Pancytopenia Discharge Exam Constitutional + well hydrated; no acute distress Eyes PERRL, conjunctivae normal, anicteric sclerae ENMT external ear and nose normal, oropharynx normal Respiratory normal respiratory effort, lungs clear to auscultation Cardiovascular Rate/Rhythm: regular rate and regular rhythm Gastrointestinal (Abdomen) normal bowel sounds, soft, nontender, no hepatosplenomegaly Musculoskeletal Right foot erythema/swelling mostly resolved Neurologic PERRL, EOMI, accommodation nl, no face palsy, no dysarthria Psychiatric A+Ox3, euthymic affect Discharge Data Allergies Allergy/AdvReac Type Severity Reaction Status Date / Time Penicillins Allergy Intermediate Hives Verified 10/02/24 13:22 Consultations 10/02/24 14:45 ED Decision to Admit Stat Ordered Studies 10/02/24 13:10 US venous doppler LE RT Stat Hospital Course (1) Cellulitis of foot, right: (2) Pancytopenia: (3) Colon cancer metastasized to multiple sites: (4) Dyslipidemia: Plan 64 year old man with metastatic colon cancer, currently receiving chemo with mFOLFOX6, dyslipidemia, and Raynaud phenomenon presents to the ED with infection of right great toe having failed outpatient oral antibiotics. Pt is currently on chemotherapy with last cycle on 09/23/24 with resultant pancytopenia. #Right toe and foot cellulitis #Immunocompromised due to chemotherapy #Pancytopenia LE XR and Doppler did not show any acute findings Blood cultures - 04/05 bottle growing Bacillus simplex. Likely contaminant and patient had no systemic symptoms Was treated with IV cefepime and vancomycin inpatient Discharged home to continue [employer] doxycycline and levofloxacin for another 2 days and then stop to complete a total of 7 days treatment Pancytopenia likely related to chemo #Dyslipidemia Chronic, stable Continue statin Total Time Total Time Spent Total Time Spent (In Minutes): 35 Total Time Includes: Examination of the Patient, Discharge Planning and Medication Reconciliation Discharge Plan Discharge Items Patient Disposition: Home - Self-Care Reason For Visit: RIGHT TOE CELLULITIS, PANCYTOPENIA Discharge Diagnosis: Right toe and foot cellulitis; failed outpatient treatment Pancytopenia Condition on Discharge: Fair Activity: Resume your previous activity Non-emergency contact: Primary Care Provider Call non-emergency contact if: you have any medication questions Follow-up/Referrals: Rodney Nunes M.D. [Primary Care Provider] - (Date & Time 10/10/2024 2:00 PM Provider: Rodney Nunes MD [facility]) Diet: Regular Addtl Attending Provider Instructions: Mr Lieberman You were hospitalized and managed for the above listed diagnoses. You were treated with injection antibiotics. Please continue doxycycline and levofloxacin for two more days and then stop. Please ensure follow up with your Primary Doctor and Oncologist. It was a pleasure taking care of you Pending Studies at Discharge: No Stand-Alone Forms: [facility], Smoking Cessation Medications and DC Order Prescriptions: Continued simvastatin 20 mg tablet 20 mg PO DAILY mupirocin 2 % ointment 1 applic TOPICAL DIRECTED dicyclomine 10 mg capsule 10 mg PO TID PRN (Reason: Pain) doxycycline hyclate 100 mg capsule 100 mg PO BID 2 Days Qty: 0 0RF Patient Comments: filled 09/30 7 day supply #14 levofloxacin 750 mg tablet 750 mg PO DAILY 2 Days Qty: 0 0RF Patient Comments: filled 09/30 7 day supply #7 Discharge Orders: Discharge Order (Routine); Ordered 10/06/24 Ordered By: Michelle Scott/Other Patient Handouts: Cellulitis Dc Admission Data Admit Date/Time: 10/02/24 16:26 Attending Provider: Michelle Rosales I. Admit Provider: Jocelyn Salcedo Primary Care Provider: Rodney Nunes Other Providers: Jocelyn Salcedo Other Interventions: Discharge Summary Assessment (RN) Last Done: 10/06/24 12:00
== END 2024-10-06 13:41 | disposition home or self-care (01) | DRG 602 ==
LOC: ED 12:19 → SUATTDRO 16:26 → 3W 16:26